=== PATIENT | female | born 1980 | race Caucasian/White ===

== ENCOUNTER → 2021-03-31 | Day surgery (SDC) | payer BC, OTHER ==
[~2021-03-31] VITALS: Ht 170.2 cm; Wt 83.0 kg
[~2021-03-31] MED LIST: ASA81BEC PO; CALCIUM500 MG PO; CLARITIN10 M3 PO; DEXCOM G61 EAC2 PORT; KLOR-CON 10 ER10 MEQ PO; MAGNESIUM250 M1 PO; NOVOLOG100 UNIT/1 SUBQ; OMEGA 3 1,0001 EACH PO; ONDANSETRON HCL4 M3 PO; TIZANIDINE HCL 22 M1 PO
[2021-03-31 14:40] VITALS: BP 140/78
[2021-03-31 15:06] LABS: CALCIUM 8.9 mg/dL (8.5-10.1); CREATININE 0.9 mg/dL (0.6-1.0); POTASSIUM 4.2 mmol/L (3.5-5.1)
[2021-03-31 16:21] VITALS: BP 140/78
--- NOTE | 2021-04-02 08:42 | H ---
[facility] [place] [address] HISTORY AND PHYSICAL Name: GITA BONNER Room #: [facility].#: [id number] Admission: 03/31/21 Attend Phys: Amber Ponce, Discharge: Date of : 80 Report #: [id number] THIS REPORT FOR: cc: Vikas Verduzco MD, David E MD Deardorff,Amber Soto MD ~ DOC #: [id number] Amber Ponce MD DATE OF SERVICE: 03/31/2021 PREOPERATIVE DIAGNOSIS: Left ulnar nerve compression at the elbow. POSTOPERATIVE DIAGNOSIS: Left ulnar nerve compression at the elbow. PROCEDURE PERFORMED: Left ulnar nerve decompression in situ at the elbow. SURGEON: Amber Ponce MD ANESTHESIA: General mask anesthesia. ESTIMATED BLOOD LOSS: Minimal. TOURNIQUET TIME: 18 minutes. COMPLICATIONS: None. CONDITION: Stable. DISPOSITION: To recovery room. INDICATIONS: The patient is a 40-year-old female with the above-mentioned diagnosis. She elected for operative treatment. The risks, benefits, alternatives and complications were discussed including but not limited to infection, damage to vessels or nerves, incomplete relief or worsening of any symptoms. Informed consent was obtained. The correct extremity was identified and labeled myself after verbal confirmation of the patient as well as visual confirmation and signed informed consent. DESCRIPTION OF PROCEDURE: The patient was brought back to the operating room and placed on the operating table in the supine position. She received preoperative antibiotics. Tourniquet was placed over padding on the patient's left upper extremity. Left upper extremity was sterilely prepped and draped in the usual fashion. Final timeout was taken to verify correct patient,operative procedure, operative site, all concurred. The arm was elevated, exsanguinated and the tourniquet inflated. The entire procedure was done with the aid of a 3.5 loupe magnification. Next, a 12 cm incision was made over the course of the [address] [address] HISTORY AND PHYSICAL Name: GITA BONNER [place] #: [place] [facility] [place]#: [id number] Admission: 03/31/21 Attend Phys: Amber Ponce, Discharge: Date of : 80 Report #: [id number] ulnar nerve posterior to the medial epicondyle. Dissection was carried down through subcutaneous tissue with tenotomy scissors. Ulnar nerve was identified posterior to the medial epicondyle and was decompressed for 8 cm proximally and 5 cm distally to the medial epicondyle. Upon the initial dissection and released proximal to the medial epicondyle, there was a nice return of vascular pattern to the nerve. Careful attention was paid to avoid damage to any other structures. Subcutaneous nerves distal to the medial epicondyle were carefully protected. The elbow was taken through full range of motion. There was no instability of the nerve. The nerve was in good condition and good position. The wound was thoroughly irrigated. The tourniquet was deflated. Hemostasis was achieved. The wound was closed with 3-0 nylon suture. Subcutaneous tissue was then infiltrated with approximately 10 mL of 0.25% Marcaine. She was placed in a bulky dressing and a posterior slab elbow splint with the elbow flexed approximately 30 degrees. All fingers were pink and brisk capillary refill at the conclusion of the case after deflation of tourniquet and after application of the dressing. All sponge and needle counts were correct. The patient transferred to postoperative recovery room in stable condition. MD JENNY Herbert/EZIO <ELECTRONICALLY SIGNED> By: Amber Ponce MD 04/02/21 [id number] Amber Ponce MD /nt
== END | disposition home or self-care (01) ==
LOC: OR 09:47
PROVIDERS: ATTEND Orthopaedic Surgery Hand Surgery
DX: G56.22 Lesion of ulnar nerve, left upper limb (principal); E11.9 Type 2 diabetes mellitus without complications; K21.9 Gastro-esophageal reflux disease without esophagitis; Z98.890 Other specified postprocedural states; Z79.899 Other long term (current) drug therapy; Z90.710 Acquired absence of both cervix and uterus; Z88.0 Allergy status to penicillin
CPT/HCPCS: 50010; 50101; 50386; 56524; 56527; 57006; 57091; 57178; 62110; 62900; 70005